=== PATIENT | male | born 1965 | race African-American/Black ===

== ENCOUNTER 2017-04-02 18:53 | Emergency (ER) | payer MEDICAID ==
[~2017-04-02] VITALS: Ht 180.3 cm; Wt 73.9 kg
[2017-04-02 18:59] VITALS: BP 127/74
== END 2017-04-02 21:57 | disposition left against medical advice (07) ==
LOC: ER 18:58
DX: G89.29 Other chronic pain (principal); M54.9 Dorsalgia, unspecified; Z53.21 Procedure and treatment not carried out due to patient leaving prior to being seen by health care provider